=== PATIENT | female | born 1985 | race Caucasian/White ===

== ENCOUNTER 2018-10-28 10:46 | Outpatient (CLI) | payer OTHER | END 2018-10-28 10:47 | disposition home or self-care (01) | LOC: C.LAB 10:46 ==

== ENCOUNTER 2018-12-05 12:19 | Outpatient (CLI) | payer OTHER | END 2018-12-05 12:20 | disposition home or self-care (01) | LOC: C.USIC 12:19 | DX: R10.32 Left lower quadrant pain (principal) ==